=== PATIENT | female | born 1985 | race Caucasian/White ===

== ENCOUNTER → 2016-07-03 12:45 | Outpatient (CLI) | payer BC | END | disposition home or self-care (01) | LOC: D.NM 12:45 | DX: R10.11 Right upper quadrant pain (principal) ==

== ENCOUNTER → 2017-07-23 11:02 | Outpatient (CLI) | payer OTHER | END | disposition home or self-care (01) | LOC: D.NM 11:02 | DX: R10.9 Unspecified abdominal pain (principal); R11.0 Nausea ==

== ENCOUNTER → 2017-12-06 13:06 | Outpatient (CLI) | payer OTHER | END | disposition home or self-care (01) | LOC: D.CT 13:06 | DX: J32.9 Chronic sinusitis, unspecified (principal) ==